=== PATIENT | male | born 1990 | race Caucasian/White ===

== ENCOUNTER 2017-05-13 11:23 | Emergency (ER) | payer BC ==
[2017-05-13 11:37] VITALS: RESP 18; TEMP 98.1
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
[2017-05-13] MEDS ORDERED: CEPHALEXIN 500 MG CAP PO ONE (14:09)
[2017-05-13 14:27] VITALS: BP 126/71; PULSE 60; O2SAT 98
== END 2017-05-13 14:27 | disposition home or self-care (01) ==
PROC: 0HQEXZZ Repair Left Lower Arm Skin, External Approach (ICD-10-PCS; principal; 2017-05-13)
DX: S51.012A Laceration without foreign body of left elbow, initial encounter (principal); X58.XXXA Exposure to other specified factors, initial encounter; Y93.35 Activity, hang gliding